=== PATIENT | male | born 1985 | race American Indian/Alaskan Native ===

== ENCOUNTER 2017-07-14 08:33 | Emergency (ER) | payer SELFPAY ==
[2017-07-14 09:02] VITALS: BP 129/92
[2017-07-14 09:28] LABS: Basophils % (Auto) 0.8 % (0.0-1.8); Eosinophils % (Auto) 1.3 % (0.0-4.3); Hemoglobin 15.5 gm/dl (11.8-15.2); Mean Corpuscular HGB Conc 33 % (32-34); Mean Corpuscular Hemoglobin 29 pg (28-32); Mean Corpuscular Volume 88 fl (84-94); Platelet Count 241 K/mm3 (140-440); Red Blood Count 5.35 M/mm3 (3.65-5.03); Red Cell Distribution Width 14.3 % (13.2-15.2); White Blood Count 7.7 K/mm3 (4.5-11.0)
[2017-07-14 09:46] LABS: Alanine Aminotransferase 31 units/L (7-56); Albumin 4.6 g/dL (3.9-5); Albumin/Globulin Ratio 1.5 %; Alkaline Phosphatase 48 units/L (35-129); Anion Gap 18 mmol/L; BUN/Creatinine Ratio 11; Blood Urea Nitrogen 10 mg/dL (9-20); Calcium 9.8 mg/dL (8.4-10.2); Carbon Dioxide 28 mmol/L (22-30); Chloride 101.4 mmol/L (98-107); Glucose 127 mg/dL (75-100); Lipase 28 units/L (13-60); Potassium 4.5 mmol/L (3.6-5.0); Sodium 143 mmol/L (137-145); Total Protein 7.7 g/dL (6.3-8.2)
== END 2017-07-14 19:45 | disposition left against medical advice (07) ==
LOC: ED 08:33
DX: R11.10 Vomiting, unspecified (principal); Z53.21 Procedure and treatment not carried out due to patient leaving prior to being seen by health care provider
CPT/HCPCS: 36415; 80053; 83690; 85025